=== PATIENT | male | born 1940 | race Caucasian/White ===

== ENCOUNTER 2016-11-24 11:44 | Emergency (ER) | payer OTHER, MEDICAID ==
[~2016-11-24] VITALS: Ht 170.2 cm; Wt 90.7 kg
[2016-11-24 12:20] VITALS: BP 118/71; PULSE 70; RESP 18; TEMP 97.9; O2SAT 95
--- NOTE | 2016-11-24 13:16 | NUR ---
BROUGHT BACK TO BED #8 AND REPORT GIVEN TO NURSE
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
--- NOTE | 2016-11-24 14:00 | NUR ---
ER MD Ortiz at bedside
[2016-11-24 14:45] VITALS: BP 121/73; PULSE 74; RESP 17; TEMP 98.9; O2SAT 98
--- NOTE | 2016-11-24 14:45 | NUR ---
Patient given written and verbal discharge instructions and verbalizes understanding. ER MD Barnett discussed with patient the results and treatment provided. Patient in stable condition. ID arm band removed. Patient educated on pain management and to follow up with PMD. Pain Scale 0/10. Opportunity for questions provided and answered.
== END 2016-11-24 14:45 | disposition home or self-care (01) ==
LOC: SED 11:44
DX: Z00.00 Encounter for general adult medical examination without abnormal findings (principal); Z04.3 Encounter for examination and observation following other accident; V89.2XXA Person injured in unspecified motor-vehicle accident, traffic, initial encounter; Y93.89 Activity, other specified; Y99.8 Other external cause status; Y92.89 Other specified places as the place of occurrence of the external cause
CPT/HCPCS: 99281

== ENCOUNTER 2019-11-12 15:16 | Outpatient (CLI) | payer OTHER, MEDICAID | END 2019-11-12 21:30 | disposition home or self-care (01) | LOC: SRD 15:16 | DX: M17.11 Unilateral primary osteoarthritis, right knee (principal); M16.0 Bilateral primary osteoarthritis of hip; M47.814 Spondylosis without myelopathy or radiculopathy, thoracic region; M47.816 Spondylosis without myelopathy or radiculopathy, lumbar region; I70.0 Atherosclerosis of aorta; J18.9 Pneumonia, unspecified organism | CPT/HCPCS: 71046-TC; 72100-TC; 73521; 73564 ==

== ENCOUNTER 2020-04-29 15:16 | Emergency (ER) | payer OTHER, MEDICAID ==
[~2020-04-29] VITALS: Ht 167.6 cm; Wt 81.6 kg
[2020-04-29 16:25] VITALS: BP_SYST 109
--- NOTE | 2020-04-29 16:25 | NUR ---
Patient to ER bed H1 to gown for evaluation. Side rails up. Report given to KINSEY Hernández.
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
--- NOTE | 2020-04-29 16:45 | NUR ---
DR MOSER IN TO ASSESS. DAUGHTER # [phone]
[2020-04-29 17:08] VITALS: BP_SYST 117
--- NOTE | 2020-04-29 17:08 | NUR ---
Patient given written and verbal discharge instructions and verbalizes understanding. ER MD discussed with patient the results and treatment provided. Patient in stable condition. ID arm band removed. NO Rx given. Patient educated on pain management and to follow up with PMD. Pain Scale 0/10. Opportunity for questions provided and answered. Medication side effect fact sheet provided.
== END 2020-04-29 17:08 | disposition home or self-care (01) ==
LOC: SED 15:16
DX: R09.89 Other specified symptoms and signs involving the circulatory and respiratory systems (principal)
CPT/HCPCS: 71045; 99283